=== PATIENT | male | born 1980 | race Caucasian/White ===

== ENCOUNTER → 2024-04-17 | Emergency (ER) | payer SELFPAY ==
[~2024-04-17] VITALS: Ht 185.4 cm; Wt 88.6 kg
[~2024-04-17] MED LIST: BUPR-345 PO; BuPROPion HCL 100 MG TABLET PO ONE; METF-1211 PO
[2024-04-17 02:14] VITALS: BP 167/103; PULSE 121; RESP 16; TEMP 98
== END | disposition still patient (30) ==
LOC: EMS 02:13
DX: N50.811 Right testicular pain (principal); E11.9 Type 2 diabetes mellitus without complications; I10 Essential (primary) hypertension; Z98.890 Other specified postprocedural states; Z88.0 Allergy status to penicillin
CPT/HCPCS: 82962; 93005; 99282

== ENCOUNTER 2024-04-22 06:14 | Inpatient (IN) | payer OTHER ==
[~2024-04-22] VITALS: Ht 188 cm; Wt 86.0 kg
[~2024-04-22 06:14] MED LIST changes: -BuPROPion HCL 100 MG TABLET PO ONE
[2024-04-22 07:21] LABS: BASOPHILS % (AUTO) 0.2 % (0.0-2.0); EOSINOPHILS % (AUTO) 0.7 % (1.0-6.0); HEMATOCRIT 36.9 % (41-53); HEMOGLOBIN 12.4 g/dL (13.5-17.5); LYMPHOCYTES # (AUTO) 1.8 K/uL (1.0-4.8); LYMPHOCYTES % (AUTO) 22.3 % (22.0-44.0); MEAN CORPUSCULAR HEMOGLOBIN 30.1 pg (26.0-34.0); MEAN CORPUSCULAR HGB CONC 33.5 G/dL (31.0-37.0); MEAN CORPUSCULAR VOLUME 90 fL (80-100); MONOCYTES # (AUTO) 0.7 K/uL (0.1-1.0); MONOCYTES % (AUTO) 9.5 % (2.0-9.0); NEUTROPHILS # (AUTO) 5.3 K/uL (1.8-7.7); NEUTROPHILS % (AUTO) 67.3 % (40.0-70.0); PLATELET COUNT (AUTO) 213 K/uL (150-450); RED BLOOD CELL COUNT(AUTO) 4.12 MIL/uL (4.50-5.90); WHITE BLOOD COUNT (AUTO) 7.8 K/uL (4.5-11.0)
[2024-04-22 07:35] LABS: ANION GAP 10 mmol/L (8-16); CALCIUM, TOTAL 8.5 mg/dL (8.8-10.5); CARBON DIOXIDE 26 mmol/L (22-29); CHLORIDE 102 mmol/L (98-107); CREATININE 0.73 mg/dL (0.60-1.30); GLOMERULAR FILTR. RATE CALC > 60 mL/min (>60); GLUCOSE,RANDOM 142 mg/dL (70-110); POTASSIUM 3.6 mmol/L (3.5-5.1); SODIUM SERUM 138 mmol/L (136-145); UREA NITROGEN, BLOOD 15 mg/dL (7-18)
[2024-04-22 07:43] LABS: B-TYPE NATRIURETIC PEPTIDE 48 pg/mL (0-100); TROPONIN I-HIGH SENSITIVITY 31 ng/L (<76)
[2024-04-22] MEDS: ASPIRIN 81 MG CHEWABLE TABLET PO ONE (10:06)
[2024-04-22] MEDS ORDERED: DEXTROSE 50%-WATER 25 GM/50 ML SYRINGE IVP PRN (10:15)
[2024-04-22] MEDS ORDERED: ACETAMINOPHEN 325 MG TABLET PO PRN (10:15)
[2024-04-22] MEDS ORDERED: MAGNESIUM HYDROXIDE SUSPENSION 30 ML UDCUP PO PRN (10:15)
[2024-04-22 15:37] LABS: TROPONIN I-HIGH SENSITIVITY 29 ng/L (<76)
[2024-04-22] MEDS: HEPARIN SODIUM,PORCINE 5,000 UNITS/ML VIAL SQ SCH (17:22)
[2024-04-22 17:33] VITALS: BP 149/94; PULSE 85; RESP 18; TEMP 98
[2024-04-22] MEDS: INSULIN LISPRO 100 UNITS/ML SQ PRN (18:03)
[2024-04-22 20:00] VITALS: BP 145/95; PULSE 88; RESP 17; TEMP 98.6
[2024-04-22 20:36] LABS: GLUCOMETER DEV NAME(LOC) 5N.1D; GLUCOSE,POINT OF CARE 150 MG/DL (70-110)
[2024-04-22 20:48] LABS: APPEARANCE,URINE CLEAR (CLEAR); BILIRUBIN,URINE NEGATIVE (NEGATIVE); COLOR,URINE COLORLESS (YELLOW); GLUCOSE, URINE (UA) NEGATIVE (NEGATIVE); KETONES,URINE NEGATIVE (NEGATIVE); LEUKOCYTE ESTERASE ,URINE NEGATIVE (NEGATIVE); NITRATE,URINE NEGATIVE (NEGATIVE); OCCULT BLOOD,URINE NEGATIVE (NEGATIVE); PROTEIN,URINE NEGATIVE (NEGATIVE); SPECIFIC GRAVITIY, URINE 1.009 (1.003-1.030); UROBILINOGEN,URINE <=1.0 mg/dL (<=1.0)
[2024-04-22 20:50] LABS: ALCOHOL, URINE DRUG SCREEN NEGATIVE (NEGATIVE); AMPHET/METH SCREEN,URINE POSITIVE (NEGATIVE); BARBITURATE SCREEN, URINE NEGATIVE (NEGATIVE); BENZODIAZEPINES SCREEN,URINE NEGATIVE (NEGATIVE); CANNABINOID SCREEN,URINE NEGATIVE (NEGATIVE); COCAINE SCREEN,URINE NEGATIVE (NEGATIVE); METHADONE SCREEN, URINE NEGATIVE (NEGATIVE); OPIATE SCREEN,URINE NEGATIVE (NEGATIVE); PHENCYCLIDINE SCREEN,URINE NEGATIVE (NEGATIVE)
[2024-04-23 00:12] VITALS: BP 151/93; PULSE 90; RESP 16; TEMP 98.4
[2024-04-23 04:07] VITALS: BP 156/94; PULSE 92; RESP 18; TEMP 97.7
[2024-04-23 05:56] LABS: GLUCOMETER DEV NAME(LOC) 5S.1B; GLUCOSE,POINT OF CARE 109 MG/DL (70-110)
[2024-04-23 07:54] VITALS: BP 147/90; PULSE 84; RESP 18; TEMP 98
[2024-04-23 08:26] LABS: GLUCOMETER DEV NAME(LOC) 5N.1D; GLUCOSE,POINT OF CARE 169 MG/DL (70-110)
[2024-04-23] MEDS: FAMOTIDINE 20 MG TABLET PO SCH (08:42)
== END 2024-04-23 16:20 | disposition home or self-care (01) | DRG 313 ==
LOC: EMS 06:15 → EDH 10:03 → 5S 13:35
PROVIDERS: ADMIT Internal Medicine; ATTEND Internal Medicine
DX: R07.89 Other chest pain (principal); E11.9 Type 2 diabetes mellitus without complications; I10 Essential (primary) hypertension; D64.9 Anemia, unspecified; F15.90 Other stimulant use, unspecified, uncomplicated; Z83.3 Family history of diabetes mellitus; Z88.0 Allergy status to penicillin
CPT/HCPCS: 71045; 80048; 80307; 81003; 82962; 83880; 84484; 85025; 93005; 93306; 99285; J1644; 36415-L1; 36415-TC